=== PATIENT | male | born 1950 | race Caucasian/White ===

== ENCOUNTER → 2020-09-17 | Outpatient (CLI) | payer MEDICARE, OTHER ==
[~2020-09-17] MED LIST: CLARITIN10 MG PO; HYDRALAZINE HCL50 MG PO; LEVOTHYROXINE112 MCG PO; NORVASC10 MG PO; PACERONE200 MG PO; PRINIVIL20 MG PO; REVATIO 20 MG T20 MG PO; TOPROL XL25 MG PO; XARELTO 15 MG T15 MG PO
== END ==
LOC: HEART 5 08-27 11:00
DX: M79.606 Pain in leg, unspecified (principal)

== ENCOUNTER → 2022-02-19 | Outpatient (CLI) | payer MEDICARE, OTHER | LOC: HEART 5 08:52 | DX: R06.02 Shortness of breath (principal); Z79.899 Other long term (current) drug therapy | CPT/HCPCS: 94729 ==